=== PATIENT | male | born 2000 | race Two or more races ===

== ENCOUNTER 2019-04-26 14:53 | Emergency (ER) | payer SELFPAY ==
[~2019-04-26] VITALS: Ht 185.4 cm; Wt 90.7 kg
[~2019-04-26 14:53] MED LIST: KEPPRA500 M3 PO; KEPPRA500 MG ORAL
[2019-04-26] MEDS ORDERED: UNOBMED (15:04)
[2019-04-26] MEDS ORDERED: LORazepam Inj 2mg/ml 1ml ONE (15:09)
[2019-04-26] MEDS ORDERED: levETIRAcetam 1,000mg/NS100ml 100 ML IVPB ONE (15:15)
[2019-04-26] MEDS ORDERED: LORazepam Inj 2mg/ml 1ml IV ONE (15:15)
[2019-04-26 15:30] LABS: ANION GAP 14 mmol/L (5-15); BLOOD UREA NITROGEN 11 mg/dL (7-18); CARBON DIOXIDE 25 MMOL/L (21-32); CHLORIDE 104 MMOL/L (98-107); CREATININE 1.1 MG/DL (0.55-1.30); POTASSIUM 3.2 MMOL/L (3.5-5.1); SODIUM 143 MMOL/L (136-145)
[2019-04-26 15:34] LABS: ALANINE AMINOTRANSFERASE 24 U/L (12-78); ALBUMIN 4.2 G/DL (3.4-5.0); ALBUMIN/GLOBULIN RATIO 1.3 (1.0-2.7); ALKALINE PHOSPHATASE 78 U/L (46-116); ASPARTATE AMINO TRANSFERASE 16 U/L (15-37); BILIRUBIN,TOTAL 0.5 MG/DL (0.2-1.0)
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
[2019-04-26 15:50] LABS: BASOPHILS % (AUTO) 1.2 % (0.0-2.0); EOSINOPHILS % (AUTO) 1.4 % (0.0-3.0); HEMATOCRIT 46.7 % (42.0-52.0); HEMOGLOBIN 15.9 G/DL (14.2-18.0); LYMPHOCYTES % (AUTO) 25.8 % (20.0-45.0); MEAN CORPUSCULAR VOLUME 95 FL (80-99); MONOCYTES % (AUTO) 7.3 % (1.0-10.0); NEUTROPHILS % (AUTO) 64.2 % (45.0-75.0); PLATELET COUNT 288 K/UL (150-450); WHITE BLOOD COUNT 10.9 K/UL (4.8-10.8)
[2019-04-26 15:53] VITALS: BP 122/67
--- NOTE | 2019-04-26 16:57 | Diagnostic Imaging Report ---
Indication: Seizure Technique: Contiguous 5 mm thick transaxial imaging of the head obtained in a Siemens Sensation [address] scanner. Soft tissue and bone windows generated. Automatic Exposure Control was utilized. Total Dose length Product (DLP): [address] Dose Index Volume (CTDIvol): 125 mGy Comparison: 04/11/2015 Findings: The size and configuration of the cortical sulci, basal cisterns, and ventricles are within normal limits for age. There is no mass effect, midline shift, or edema identified. There is no evidence of acute hemorrhage or abnormal intra-axial or extra-axial fluid collections. The bones and soft tissues are unremarkable. Impression: No mass effect, edema or acute bleed. The CT scanner at [facility] is accredited by the [employer] and the scans are performed using dose optimization techniques as appropriate to a performed exam including Automatic Exposure control.
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
[2019-04-26 18:20] VITALS: BP 125/73
--- NOTE | 2019-04-26 18:20 | NUR ---
ED Nurse Note:pt. sleeping no signs of distress noted
--- NOTE | 2019-04-26 19:05 | NUR ---
HAND-OFF: Report given to Irasema.
--- NOTE | 2019-04-26 19:10 | NUR ---
ED Nurse Note: Got report from DARLYN Thompson. Pt is sleeping, VSS at this time, no acute disstress noticed.
[2019-04-26 20:51] VITALS: BP 125/73
--- NOTE | 2019-04-26 20:53 | NUR ---
ER DISCHARGE NOTE: Patient is cleared to be discharged per ERMD, pt is aox4, on room air, with stable vital signs. pt was given dc and prescription instructions, pt was able to verbalize understanding, pt id band and iv site removed without complications. pt is able to ambulate with steady gait. pt took all belongings.
== END 2019-04-26 20:53 | disposition home or self-care (01) ==
LOC: EDBD 14:53 → EMR 15:11
DX: G40.909 Epilepsy, unspecified, not intractable, without status epilepticus (principal); R45.1 Restlessness and agitation; V19.9XXA Pedal cyclist (driver) (passenger) injured in unspecified traffic accident, initial encounter; Y93.55 Activity, bike riding; Y92.410 Unspecified street and highway as the place of occurrence of the external cause
CPT/HCPCS: 70450; 80053; 80164; 80184; 80185; 85025; 93005; 96361; 96374; 96375; 99284; G0480; J1953; 80329